=== PATIENT | male | born 1975 | race Caucasian/White ===

== ENCOUNTER 2017-02-05 22:21 | Emergency (ER) | payer MEDICARE | END 2017-02-06 00:47 | disposition home or self-care (01) | LOC: ER 22:21 | DX: S42.252A Displaced fracture of greater tuberosity of left humerus, initial encounter for closed fracture (principal); R56.9 Unspecified convulsions; F19.10 Other psychoactive substance abuse, uncomplicated; Z79.899 Other long term (current) drug therapy; X58.XXXA Exposure to other specified factors, initial encounter | CPT/HCPCS: 36415; 80307 ==